=== PATIENT | male | born 1990 | race Caucasian/White ===

== ENCOUNTER 2017-10-24 17:22 | Emergency (ER) | payer OTHER ==
[2017-10-24] MEDS ORDERED: HYDROcodone/Acetaminophen 10/325 mg Tablet ONE (17:27)
[2017-10-24] MEDS ORDERED: Cephalexin 500 MG CAP ONE (17:27)
[2017-10-24] MEDS ORDERED: Lidocaine Viscous Sol 2% 15 ml UD Cup ONE (17:45)
[2017-10-24] MEDS ORDERED: Adacel (T-DAP) 0.5 ML VIAL ONE (17:45)
[2017-10-24] MEDS ORDERED: Bupivacaine 0.5% 10 ML VIAL ONE (18:23)
--- NOTE | 2017-10-24 22:57 | RAD ---
RIGHT HAND THREE VIEWS: 10/24/17 There is a minimally displaced fracture of the terminal tuft of the distal phalanx of the third finge r. Remainder of the hand, wrist, and other fingers appear intact. IMPRESSION: Tuft fracture of the distal phalanx of the third finger. POS: HOME
== END 2017-10-24 19:20 | disposition home or self-care (01) ==
LOC: BURERS 17:22
DX: S61.212A Laceration without foreign body of right middle finger without damage to nail, initial encounter (principal); F17.210 Nicotine dependence, cigarettes, uncomplicated; W31.89XA Contact with other specified machinery, initial encounter
CPT/HCPCS: 11760; 90471; 90715; J3490

== ENCOUNTER 2017-11-03 09:41 | Emergency (ER) | payer OTHER | END 2017-11-03 09:57 | disposition home or self-care (01) | LOC: BURERS 09:41 | DX: S61.212D Laceration without foreign body of right middle finger without damage to nail, subsequent encounter (principal); F17.210 Nicotine dependence, cigarettes, uncomplicated ==